=== PATIENT | female | born 1950 | race Caucasian/White ===

== ENCOUNTER 2019-06-27 12:56 | Emergency (ER) | payer MEDICARE, MEDICAID | END 2019-06-27 13:45 | disposition home or self-care (01) | LOC: EDH 12:56 | DX: L25.9 Unspecified contact dermatitis, unspecified cause (principal); I10 Essential (primary) hypertension; M19.90 Unspecified osteoarthritis, unspecified site; Z98.890 Other specified postprocedural states; Z88.2 Allergy status to sulfonamides ==